=== PATIENT | male | born 1985 | race Hispanic/Latino ===

== ENCOUNTER 2024-07-17 01:25 | Emergency (ER) | payer BC ==
--- OUTSIDE RECORDS SUMMARY | 2024-07-17 01:29 | XMS REPORT | Continuity of Care Document ---
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 have a faint memory of the procedure. Or you may not remember it at all. You should be able to go home within 1 to 2 hours after your procedure. Plan to have a trusted adult stay with you for a few hours. This person should make sure your condition is not getting worse. They should also watch for problems, and keep you safe. You may have side effects, such as nausea, fatigue, or unsteadiness for up to 24 hours. You may also feel lightheaded. Tell your healthcare provider if they continue. Don?t drive or operate dangerous machines during the next 24 hours. Also, don't make any important business or personal decisions. And don't drink any alcohol during the next 24 hours. Take extra care when walking and moving, You may be at a higher risk of falling. Follow any instructions you were given for eating and drinking. Be sure to follow all after-care directions. When to call your healthcare provider Have someone call your healthcare provider right away if any of the following occur: ? Drowsiness that gets worse ? Weakness or dizziness that gets worse ? Repeated vomiting ? Your speech is slurred, and others cannot understand you ? Severe or ongoing pain from the procedure, not relieved by the pain medicine (if prescribed) ? Fever of 100.4? F (38?C) or higher, or as advised by your healthcare provider ? New rash Call 911 Have someone call 911 if any of the following occur: ? Trouble breathing ? Trouble swallowing ? Chest pain ? Loss of consciousness or you can't be awakened Last Reviewed Date: 2021 00:00:00 ? [id number] The Clerk. All rights reserved. This information is not intended as a substitute for professional medical care. Always follow your healthcare professional's instructions. [facility]2024-12-19 12:49:03 Images from the original note were not included. 34131 Preventing a Surgical Site Infection A risk of any surgery is an infection at the surgical site. The surgical site is a cut the surgeon makes in the skin to do the surgery. Surgical site infections can range in type. It may be a minor skin infection. Or it may be severe and include tissue under the skin or other organs. In some cases, a severe infection can cause . This sheet tells you: ? About surgical site infections ? What hospitals do to prevent them ? How they?re treated if they do occur ? What you can do to prevent an infection Hand washing reduces the risk of infection. What causes a surgical site infection? Germs are everywhere. They?re on your skin, in the air, and on things you touch. Many germs are good. Some are harmful. Surgical site infections occur when harmful germs enter your body through the incision in your skin. Some infections are caused by germs that are in the air or on objects. But most are caused by germs found on and in your own body. Who is at risk for a surgical site infection? Anyone can have a surgical site infection. Your risk is higher if you: ? Are an older adult ? Have a weak immune system ? Have other health conditions such as diabetes ? Take certain medicines, such as steroids ? Are a smoker ? Have certain types of surgery, such as abdominal surgery ? Have poor nutrition ? Are very overweight ? Have a surgery that lasts longer than 2 hours What are the symptoms of a surgical site infection? An infection often shows up as skin redness, pain, and swelling around the incision that gets worse. Later a cloudy or greenish-yellow fluid may come from the incision. The fluid may smell bad. The incision may pull apart or open up. You are likely to have a fever and may feel very ill. Symptoms can appear any time. They may happen from hours to weeks after surgery. Implants such as an artificial knee or hip can become infected at any time after the surgery. How is a surgical site infection treated? ? A surgical site infection is treated with antibiotics. The type of medicine you get will depend on what may be causing the infection. Most serious wound infections need wound care. In some cases, surgery may be needed on the infected wound. ? An infected skin wound may be reopened and cleaned. A deep wound may need to be packed with gauze. The gauze is changed often until the wound starts to heal from the inside out. Your healthcare provider will decide the best way to treat your infection. ? If an infection occurs where an implant is placed, the implant may be removed. ? If you have an infection deeper in your body, you may need surgery to treat it. What hospitals do to prevent surgical site infections Many hospitals take these steps to help prevent surgical site infections: ? Handwashing. Before the surgery, your surgeon and all surgery staff scrub their hands and arms with an antiseptic soap. ? Clean skin. The site where your incision is made is carefully cleaned with an antiseptic solution. ? Sterile clothing and drapes. The surgical team wears medical uniforms. These are known as scrub suits. They wear long-sleeved surgical gowns, masks, caps, shoe covers, and sterile gloves. Your body is fully covered with a large sterile sheet (sterile drape). There is an opening in the sheet where the incision is made. ? Clean air. Operating rooms have special air filters. They use positive pressure airflow to prevent unfiltered air from entering the room. ? Careful use of antibiotics. Antibiotics are given no more than 60 minutes before the incision is made. They are generally stopped within 24 hours after surgery. This depends on the type of surgery. This helps kill germs but prevents problems that can occur when antibiotics are taken longer. ? Controlled blood sugar levels. Your blood sugar level may rise. This can be because of the stress of the surgery. Your blood sugar level is watched closely to make sure it stays within a normal range. High blood sugar delays wound healing. This increases the risk of infection. ? Controlled body temperature. A [id number] temperature during or after surgery prevents oxygen from reaching the wound. This makes it harder for your body to fight infection. Hospitals may warm IV fluids, increase the temperature in the operating room, and provide warm-air blankets. ? Safe hair removal. Any hair that must be removed is clipped right before the incision, not shaved with a razor. This prevents tiny nicks and cuts where germs can enter. ? Wound care. After surgery, a closed wound is covered with a sterile dressing for 1 to 2 days. Open wounds are packed with sterile gauze and covered with a sterile dressing. What you can do to prevent a surgical site infection ? Ask questions. Learn what your hospital is doing to prevent infection. ? If instructed, shower or bathe with plain soap the night before and the day of your surgery. Follow all instructions you're given. You may be asked to use a special cleanser that you don?t rinse off. ? If you smoke, stop as long as possible before and after the surgery. Ask your healthcare provider about ways to quit. ? Take antibiotics only when your healthcare provider tells you to. Using antibiotics when they?re not needed can create germs that are harder to kill. Finish the entire prescription of your antibiotics. Take them even if you feel better. ? Ask healthcare workers to clean their hands with plain soap and water or with an alcohol-based hand automotive electrical fitter before and after caring for you. Don?t be afraid to remind them. ? After surgery, eat healthy foods. Care for your incision as directed by your healthcare team. When to call your healthcare provider Call your healthcare provider if you have any of these: ? Pain at the surgical site that gets worse ? A red streak, worse redness, or puffiness near the incision ? Yellowish, cloudy, or bad-smelling fluid from the incision ? Stitches that dissolve before the wound heals ? Fever of 100.4? F ( 38?C ) or higher, or as advised by your healthcare provider ? A tired feeling that doesn?t go away Last Reviewed Date: 2021 00:00:00 ? [id number] The Clerk. All rights reserved. This information is not intended as a substitute for professional medical care. Always follow your healthcare professional's instructions. [facility]2024-12-19 12:48:54 Images from the original note were not included. 37116 Discharge Instructions for Cerebral Angiography You had a procedure called cerebral angiography. This is an X-ray study of the blood vessels that supply your brain. During the procedure, the healthcare provider put a thin, flexible tube (catheter) into a blood vessel in your groin, arm, or neck through a small cut (incision). The provider injected contrast dye into your bloodstream to help take clear X-ray images. Here?s what to do at home afterward. Possible complications to watch for The most common complication of this test is a collection of blood (hematoma) where the catheter was inserted. This is usually in the groin. It may appear as a lump under the skin. The medical staff usually notices this before you leave the imaging facility. A hematoma is treated by putting pressure on the site for a few hours to prevent it from getting bigger. You will be told to put cold packs on your groin for 24 hours to ease the pain. It takes a couple of weeks for the hematoma to heal. If the lump increases in size or is still present after 4 weeks, have it examined by your healthcare provider. A less common complication is transient ischemic attacks (TIA) or a stroke. A TIA or stroke is caused by less blood flow to your brain. You might have weakness of an arm or leg, have trouble speaking and understanding words, or lose some vision or not remember things well. A TIA can last just a few hours. A stroke can last for days or weeks. Or be permanent. The older you are, the greater the risk for a TIA or a stroke after a cerebral angiography. You might notice these symptoms at the time of the test or after you have left the imaging facility, sometimes days later. What to do at home ? Rest at home in bed for 12 hours, or as long as directed. ? Go back to your normal diet and take your regular medicines. ? Do only light and easy activities for 2 to 3 days. ? Drink 6 to 8 glasses of water a day. This will keep you from losing fluid. It will also help flush the X-ray dye out of your body. ? Don't drive until the day after your procedure. ? Don?t do strenuous activity for 2 weeks. Don?t lift anything heavier than 10 pounds for 3 to 4 days. ? You can shower the day after your procedure. But don't swim or sit in a bath or hot tub until your incision site has healed. ? Take your temperature and check your incision site for signs of infection every day for 1 week. Check for redness, swelling, or warmth at the site. ? Ask your healthcare provider when you can go back to work. Call 911 A stroke is a medical emergency. Call 911 right away if you have any of the following symptoms of a stroke or TIA: ? Weakness, tingling, or loss of feeling on one side of your face or body ? Sudden double vision or trouble seeing in one or both eyes ? Sudden trouble talking or slurred speech ? Sudden, severe headache B.E. F.A.S.T. is an easy way to remember the signs of stroke. When you see these signs, you know that you need to call 911 fast. B.E. F.A.S.T. stands for: ? B is for balance. Sudden loss of balance or coordination. ? E is for eyes. Vision changes in one or both eyes. ? F is for face drooping. One side of the face is drooping or numb. When the person smiles, the smile is uneven. ? A is for arm weakness. One arm is weak or numb. When the person lifts both arms at the same time, one arm may drift downward. ? S is for speech difficulty. You may notice slurred speech or trouble speaking. The person can't repeat a simple sentence correctly when asked. ? T is for time to call 911. If someone shows any of these symptoms, even if they go away, call 911 right away. Make note of the time the symptoms first appeared. When to call your healthcare provider Call your healthcare provider right away if any of the following occur: ? Trouble breathing ? Dizziness ? Constant or increasing pain or numbness in your leg, arm, or neck ? Fever of 100.4?F (38?C) or higher, or as directed by your healthcare provider ? Signs of infection at the incision site, such as redness, swelling, or warmth ? Shortness of breath ? Leg feels cold or looks blue ? Bleeding, bruising, or a large swelling where the catheter was inserted ? Not enough urine or no urine Last Reviewed Date: 2022 00:00:00 ? [id number] The Clerk. All rights reserved. This information is not intended as a substitute for professional medical care. Always follow your healthcare professional's instructions. [facility]2024-12-19 12:48:40 Images from the original note were not included. 56404 Arteriovenous Malformation (AVM) You have an arteriovenous malformation (AVM). An AVM is an abnormal tangle of blood vessels that causes irregular connections between arteries and veins in the brain. Some AVMs never burst (rupture). But some things can lead to a rupture. Some of these factors are known, such as a rise in blood pressure. And some factors are not known. If you have an AVM, you were likely born with it. Many people don't know they have AVM until a problem develops. Signs of an AVM include: ? Bad headaches ? Sudden or gradual paralysis or loss of sensation ? Blurred or double vision ? Jerking movements that you can't control (seizures) Understanding an AVM The brain controls the body. You can move and feel because of the brain. And it is the brain that makes you able to think, show emotions, remember, and make judgments. An AVM can damage the brain and put the rest of the body in danger. Inside the skull Under the scalp and the skull, a tough membrane (called the dura) surrounds the brain. Beneath the dura, cerebrospinal fluid (CSF) cushions the brain. Blood vessels carry nutrients and oxygen-rich blood throughout the brain. Blood vessels carry blood throughout the brain. A problem with blood flow An AVM is a tangle of blood vessels. It can cause pressure to build up in the blood vessel and prevent normal blood flow. If the pressure becomes too great or the wall of the AVM vessel weakens, a blood vessel can burst and blood can leak or spurt into the brain. This can damage parts of the brain that control vital body functions, such as sight, sensation, language, critical thinking, and movements. In some cases, problems caused by an AVM can even lead to . The high blood flow in an AVM can also shunt the oxygen from the arteries directly to the veins, bypassing the brain capillaries. This shunting can lead to strokes. AVM can be treated based on the type, symptoms, and cause. Pressure builds when blood tries to flow through tangled vessels. Last Reviewed Date: 2023 00:00:00 ? [id number] The Clerk. All rights reserved. This information is not intended as a substitute for professional medical care. Always follow your healthcare professional's instructions. TAL CALIBRATOR [facility] [id number] 08:00:00 Addended by: RADHA LI on: 05/07/2024 10:44 AM Modules accepted: Level of Service [facility]AL [id number] 17:43:38Scheduled Orders Health Maintenance Due Date Last Done Comments Annual Physical 1989 Varicella Vaccines (1 of 2 - 13+ 2-dose series) 1999 DTaP/Tdap/Td Vaccines (1 - Tdap) 2005 Hepatitis B Vaccines (1 of 3 - 19+ 3-dose series) 2005 Influenza Vaccine (#1) 2024 Lipid Panel 07/01/2028 07/01/2023 HIB Vaccines Aged Out No longer eligi ble based on patient's age to complete this topic HPV Vaccines Aged Out No longer eligi ble based on patient's age to complete this topic Hepatitis A Vaccines Aged Out No long er eligible based on patient's age to complete this topic IPV Vaccines Aged Out No longer eligi ble based on patient's age to complete this topic Meningococcal Vaccine Aged Out No jaden sherrill eligible based on patient's age to complete this topic Pneumococcal Vaccine: Pediat rics (0 to 5 Years) and At-Risk Patients (6 to 64 Years) Aged Out No longer eligible b ased on patient's age to complete this topic Rotavirus Vaccines Aged Out No longer eligible based on patient's age to complete this topic [facility] NorthwestKmvrarj2112-26-18 17:43:38 Diagnosis 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 [facility] [id number] 17:43:38 [facility] [id number] 17:43:38* Imaging (Routine) - Pending Review Specialty Diagnoses / Procedures Referred By Sonny t Referred To Contact Interventional Radiology Diagnoses Arteriovenous malformation of cerebral vessels Procedures IR angiogram cerebral bilateral Antelmo Quiñones MD [address] [facility] [address] [place] [address] Phone: tel: fax: Referral ID Status Reason Start Date Expiration Date V isits Requested Visits Authorized [id number] Pending Review 04/12/2024 10/09/2024 1 1 [facility] [id number] 16:02:43 Chief Complaint: Follow up of rehabilitation needs, history of nontraumatic ICH. History of Present Illness: Present during this visit: Patient and PRIMARY CARE PHYSICIAN: Dr. Bacon NSG: Dr. 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 CTH on admission showed large right temporal and parietal hemorrhage with IVH, midline shift to the left, subfalcine herniation and uncal herniation. CTA showed a sylvian fissure AVM. s/p emergent AVM resection. The patient was transferred to [facility] for acute inpatient rehabilitation under the service of Dr. Poe from 06/30/2023 to 07/13/2023. INTERVAL HISTORY: The patient was first seen in clinic on09/07/2023. The patient and family are here for a follow up visit and reports of the followin. Medical. No new illnesses or hospitalizations since last seen in clinic. for CT angiogram in 6 to 8 months per with NSG. 2. Cognitive impairment. -- Denies issues, thinks he is baseline for day to day functioning. -- Discharge note by neuropsychologist while the patient was admitted to the [facility] inpatient unit showed severe impairment in attention, visual spatial, and executive functioning. -- He d/austen Ritalin with no negative effects per their report. 3. Functional status. -- Reports of independence with basic ADLs. -- Looking at process to return to drive and work. Worked as an operations liaison for a chemical plant in [facility] [place][note 3]. 4. Gait status. Ambulates community distances without assistive device. 5. Therapies. None but does regular home exercise program. 6. Vision. Left homonymous hemianopsia by michael Ferreira. He has seen as outpatient but pending to see [facility] group for second opinion. 7. Bowel and Bladder. Denies issues, continent. 8. Swallow. Regular consistency, thin liquids. Denies issues. 9. Sleep. Denies insomnia. 10. Mood. Improved, denies irritability, anger, mood is stable. Off Depakote. Review of Systems: CONSTITUTIONAL: Denies fever EARS, NOSE, MOUTH, THROAT: No cough, cold, sore throat, difficulty swallowing CARDIOVASCULAR: Denies orthopnea, shortness of breath RESPIRATORY: Denies difficulty of breathing GI: Denies constipation, diarrhea : Denies change in bladder function INTEGUMENTARY: Denies rash, open sores. NEURO: Denies new weakness, sensory changes. PSYCH: Denies hallucination Physical Exam: Vitals & Measurements HT: 165.1 cm WT: 56.7 kg WT Collection: Measured BP: 114/70 RR: 18 BRMIN T(Te): 97.3 DegF BP Collection Position: Sitting BMI: 20.8 m2 BSA: 1.6126 m2 SpO2: 100 % CONSTITUTIONAL: Not in acute distress, well groomed, well developed, well nourished, up in examining table. EYES: anicteric sclerae. RESPIRATORY: No intercostal retractions. Unlabored breathing. MUSCULOSKELETAL: Digits and nails are well perfused. PSYCHIATRIC: Oriented to person, place and date. Affect is appropriate. Awake and alert. No deficits of expressive and receptive language during this interaction, no tremor noted, no restlessness noted. SKIN: No rashes, lesions,ulcers noted on gross exam of exposed areas. Assessment/Plan: 1. 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 Left homonymous hemianopsia (H53.462) Right temporal and parietal hemorrhage with IVH from ruptured AVM (06/23/2023) s/p AVM resection. -- Good recovery: reports of independence in basic ADLs, independent in community ambulation, endurance improved. Still has not been able to return to drive or to work. -- Continue care with PCP for general medical needs and refill of medications. -- Keep appointments with other specialists as directed by those clinics -- They have d/austen from outpatient therapies, he performs regular home exercise program, continue. 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 If cleared, may consider referral to [facility] for behind the wheel testing and to guide his return to drive goals. We also discussed OT referral for pre driving assessment after eye doctor visit. They will call the clinic should they wish to pursue any of the recommendations. Cognitive impairment. -- Discharge note by neuropsychologist while he was at [facility] inpatient showed severe impairment in attention, visual spatial, and executive functioning. He currently denies any cognitive diffficulties and states he is back to baseline. -- He discontinued his Ritalin since last visit with no reported decline or effect on cognition, alertness. -- Referral to Neuropsychology for comprehensive cognitive evaluation, guide to return to school/driving goals were generated in 09/2023 but they declined to pursue at that time. We again discussed the recommendation, indications, and benefits of pursuing this but they decline. -- We also discussed [facility] program to assist with cognitive rehab, neuropsychology testing and return to work/drive goals but they decline at this time. Behavior, mood. -- Improved, denies irritability, anger, mood is stable. -- They have weaned off Depakote as discussed with no change in mood/behavior. Left homonymous hemianopsia. -- Seen by Dr. Foster, neuro-optometry while inpatient at [facility]. Peripheral vision is improving. -- He has seen as outpatient but pending to see [facility] group for second opinion. Recommendations and pathways for return to drive and work discussed with them. They prefer to continue to follow up with the PCP and or NSG to guide this process. Follow up in this clinic as needed. Plans were discussed with the patient and the family, who expressed understanding and agreement. Problem List/Past Medical History: Ongoing Left homonymous hemianopsia Nontraumatic intracerebral hemorrhage in hemisphere, cortical Medications: methylphenidate 5 mg oral tablet, 5 mg= 1 tab, PO, Daily Allergies: No Known Allergies Social History: Alcohol Current, Type Beer, Wine, Liquor. Frequency: 1-2 times per month. Last use: occassional; last use May 2023. Electronic Cigarette/Vaping Electronic Cigarette Use: Never. Employment/School Status: Employed. Sexual Sexually active: Yes. Substance Abuse Use: None. Tobacco Use: Never smoker. Tobacco smoke exposure: None. Did the Patient Smoke Cigarettes Anytime During the Last 365 Days? No. Cessation Counseling Provided? No. Health Maintenance: Pending (in the next year) Due HIV Screening - [facility] due 11/08/23 Unknown Frequency Hepatitis C Screening - [facility] due 11/08/23 Unknown Frequency Influenza Vaccination - [facility] due 11/08/23 Unknown Frequency Statin Therapy All Groups - IVD/CAD due 11/08/23 Unknown Frequency Tdap Vaccination - [facility] due 11/08/23 Unknown Frequency [facility]
[2024-07-17 01:54] LABS: Absolute Eosinophils 0.2 K/uL (0-0.5); Absolute Lymphocytes (CBC) 3.6 K/uL (0.7-4.9); Absolute Monocytes 0.6 K/uL (0.1-1.3); Absolute Neutrophil 3.4 K/uL (1.8-8.0); Basophils % 0.5 % (0-1.3); Eosinophils % 1.9 % (0-4.4); Hematocrit 37.9 % (39.6-49.0); Hemoglobin 12.5 g/dL (13.6-17.9); Lymphocytes % 46.7 % (15.3-44.8); MCH 27.2 pg (27.0-35.0); MCV 82.3 fL (80-100); MPV 9.3 fL (7.6-11.3); Monocytes % 7.7 % (3.3-12.3); Neutrophils % 43.2 % (41.7-73.7); Platelets 293 thou/uL (152-406); Red Cell Distribution Width 15.3 % (12.1-15.2)
[2024-07-17 02:00] LABS: Anion Gap 11.4 mEq/L (5.0-15.0); Potassium 3.4 mEq/L (3.5-5.1)
[2024-07-17] MEDS ORDERED: NA CHLORIDE 0.9% 100 ML ONE (02:00)
[2024-07-17] MEDS ORDERED: LEVETIRACETAM 500 MG/5 ML VIAL IV ONE (02:00)
[2024-07-17] MEDS ORDERED: POTASSIUM CL SA 10 MEQ TAB PO ONE (02:42)
--- NOTE | 2024-07-17 04:10 | ER ---
Nurse's Notes [facility] Name: Gino Joyce Age: 39 yrs Sex: Male : 1985 Arrival Date: 07/17/2024 Time: 01:25 Bed 3 Private MD: Diagnosis: Other seizures Presentation: 07/17 01:44 Chief complaint: EMS states: woke up to pt having a seizure. When we arrived he vc1 was no longer having a seizure but was post ictal. Coronavirus screen: Client denies travel out of the [place] in the last 14 days. At this time, the client does not indicate any symptoms associated with coronavirus-19. Ebola Screen: Patient negative for fever greater than or equal to 101.5 degrees Fahrenheit, and additional compatible Ebola Virus Disease symptoms Patient denies exposure to infectious person. Patient denies travel to an Ebola-affected area in the 21 days before illness onset. No symptoms or risks identified at this time. Risk Assessment: Do you want to hurt yourself or someone else? Patient reports no desire to harm self or others. Onset of symptoms was July 17, 2024. 01:44 Method Of Arrival: EMS: [facility] vc1 01:44 Acuity: ANTHONY 3 vc1 - Immunization history:: Adult Immunizations unknown. - Infectious Disease History:: Denies. Screenin:45 [facility] ED Fall Risk Assessment (Adult) History of falling in the last 3 months, vc1 including since admission No falls in past 3 months (0 pts) Confusion or Disorientation No (0 pts) Intoxicated or Sedated Yes (3 pts) Impaired Gait No (0 pts) Mobility Assist Device Used No (0 pt) Altered Elimination No (0 pt) Score/Fall Risk Level 0 - 2 = Low Risk Oriented to surroundings, Maintained a safe environment, Educated pt \T\ family on fall prevention, incl call for assistance when getting out of bed. Abuse screen: Denies threats or abuse. Nutritional screening: No deficits noted. Tuberculosis screening: No symptoms or risk factors identified. Assessment: :45 Reassessment: Patient and/or family updated on plan of care and expected duration. Pain br2 level reassessed. Patient is alert, oriented x 3, equal unlabored respirations, skin warm/dry/pink. General: Appears in no apparent distress. Behavior is calm, cooperative. Pain: Denies pain. Neuro: [place] Agitation-Sedation Scale (RASS): 0 - Alert and Calm Level of Consciousness is awake, alert, obeys commands, confused, Oriented to person, place, time. Cardiovascular: Capillary refill < 3 seconds. Vital Signs: 02:00 BP 104 / 82; Pulse 96; Resp 22 S; Pulse Ox 93% on R/A; br2 04:00 BP 100 / 61; Pulse 73; Resp 18; Pulse Ox 96% on R/A; br2 ED Course: 01:27 Patient arrived in ED. lg3 01:27 Beka Walton MD is Attending Physician. ec2 01:43 No provider procedures requiring assistance completed. Maintain EMS IV. Dressing vc1 intact. Good blood return noted. Site clean \T\ dry. Gauge \T\ site: 20G R AC. Flushed with 10 mL NS Converted IV to saline lock on. 01:45 Triage completed. vc1 01:46 Arm band placed on right wrist. vc1 01:46 Patient has correct armband on for positive identification. Bed in low position. Call vc1 light in reach. Provided Education on: call light. environmental monitoring technician on. Pulse ox on. NIBP on. 01:55 Basic Metabolic Panel Sent. vk 01:55 CBC with Diff Sent. vk 01:58 Keri Flores RN is Primary Nurse. br2 02:24 CT Head Brain wo Cont In Process Unspecified. EDMS 04:09 Trevor Ghosh MD is Referral Physician. ec2 04:10 IV discontinued, intact, bleeding controlled, No redness/swelling at site. Pressure br2 dressing applied. Administered Medications: 02:12 Drug: Keppra IV 1000 mg IV at bolus once Route: IV; Rate: bolus; Site: right br2 antecubital; 03:00 Follow up: Response: No adverse reaction; IV Status: Completed infusion; IV Intake: br2 100ml 02:49 Drug: Potassium Chloride PO 40 mEq PO once Route: PO; br2 03:00 Follow up: Response: No adverse reaction br2 Medication: 01:46 VIS not applicable for this client. vc1 Intake: 03:00 IV: 100ml; Total: 100ml. br2 Outcome: 04:09 Discharge ordered by . ec2 04:10 Discharged to home ambulatory, br2 04:10 Condition: improved 04:10 Discharge instructions given to patient, Instructed on discharge instructions, follow up and referral plans. Demonstrated understanding of instructions, 04:12 Patient left the ED. br2 Signatures: Dispatcher [employer] Rosa Calderon RN RN lg3 Janessa Abraham RN RN vc1 Beka Walton MD MD ec2 Marla Roper Belinda, RN RN br2 Corrections: (The following items were deleted from the chart) 04:22 04:22 IV discontinued, intact, bleeding controlled, No redness/swelling at site. br2 Pressure dressing applied, br2 04:26 04:25 Patient left the ED. br2 br2
--- NOTE | 2024-07-17 04:10 | EDPHYS ---
Physician Documentation [facility] Name: Gino Joyce Age: 39 yrs Sex: Male : 1985 Arrival Date: 07/17/2024 Time: 01:25 Bed 3 Private MD: ED Physician Beka Walton HPI: 07/17 01:28 This 39 yrs old Male presents to ER via Unassigned with complaints of seizure. ec2 01:28 Patient arrives today with history of seizure. Patient had a seizure tonight, history ec2 of seizures, previously on Keppra and discontinued 2 months ago. Patient with a history of AVM status post rupture and repair. EMS reports he picked him up and noted him to be postictal.. - Immunization history:: Adult Immunizations unknown. - Infectious Disease History:: Denies. ROS: 01:28 Constitutional: as per hpi ec2 Exam: 01:28 Constitutional: GEN: NAD Head: atraumatic Eyes: EOMI Ears: External ears are ec2 normal. CV: regular rate LUNGS: no respiratory distress ABD: non-distended SKIN: no evidence of rashes MSK: no evidence of trauma. Neuro: Cranial nerves II through XII intact, strength intact upper extremities. Vital Signs: 02:00 BP 104 / 82; Pulse 96; Resp 22 S; Pulse Ox 93% on R/A; br2 04:00 BP 100 / 61; Pulse 73; Resp 18; Pulse Ox 96% on R/A; br2 MDM: 01:27 Medical Screening Exam initiated ec2 01:28 Data reviewed: vital signs, nurses notes. ED course: Patient arrives today after ec2 seizure. Examination is revealing for neuro intact individual. Will obtain lab work, CT imaging, load with Keppra. Suspect seizure activity. Evaluating for electrolyte disturbances, anemia, arrhythmia.. 02:05 ED course: EKG independently reviewed and interpreted by me, shows normal sinus rhythm, ec2 rate of 81, no acute ST segment elevations, intervals are nonactionable.. 02:41 ED course: Patient is at baseline, is intact neurologically. Family has Keppra ec2 medication at home. I instructed them they are likely need to be restarting this medication.. 07/17 01:28 Order name: Basic Metabolic Panel; Complete Time: 02:17 ec2 07/17 01:28 Order name: CBC with Diff; Complete Time: 02:17 ec2 07/17 01:28 Order name: CT Head Brain wo Cont ec2 07/17 01:28 Order name: EKG; Complete Time: 01:28 ec2 07/17 01:28 Order name: Cardiac monitoring; Complete Time: 01:55 ec2 07/17 01:28 Order name: EKG - Nurse/Tech; Complete Time: 02:00 ec2 07/17 01:28 Order name: IV Saline Lock; Complete Time: 01:56 ec2 07/17 01:28 Order name: Labs collected and sent; Complete Time: 01:56 ec2 07/17 01:28 Order name: O2 Per Protocol; Complete Time: :55 ec2 07/17 01:28 Order name: O2 Sat Monitoring; Complete Time: :55 ec2 Administered Medications: 02:12 Drug: Keppra IV 1000 mg IV at bolus once Route: IV; Rate: bolus; Site: right br2 antecubital; 03:00 Follow up: Response: No adverse reaction; IV Status: Completed infusion; IV Intake: br2 100ml 02:49 Drug: Potassium Chloride PO 40 mEq PO once Route: PO; br2 03:00 Follow up: Response: No adverse reaction br2 Disposition Summary: 07/17/24 04:09 Discharge Ordered Notes: Location: Home ec2 Condition: Stable ec2 Diagnosis - Other seizures ec2 Followup: ec2 - With: Trevor Ghosh MD - When: - Reason: Recheck today's complaints Discharge Instructions: - Discharge Summary Sheet ec2 - Seizure, Adult ec2 Forms: - Medication Reconciliation Form ec2 - Antibiotic Education ec2 - Prescription Opioid Use ec2 - Patient Portal Instructions ec2 - Leadership Thank You Letter ec2 Signatures: Dispatcher [employer] Janessa Saeed RN RN vc1 Beka Walton MD MD ec2 Keri Flores RN RN br2
--- NOTE | 2024-07-17 05:36 | RAD REPORT ---
CLINICAL HISTORY: Seizure, hx of AVM. COMPARISON: None. TECHNIQUE: CT HEAD WITHOUT IV CONTRAST on 07/17/2024 1:28 AM EQUIPMENT STERILIZER This exam was performed according to our departmental dose-optimization program, which includes autom ated exposure control, adjustment of the mA and/or kV according to patient size and/or use of iterative reconstruction technique. FINDINGS: There is no acute hemorrhage, mass effect or midline shift. There is encephalomalacia within the righ t temporal lobe extending into the right frontoparietal region. There is no hydrocephalus. There is no significant volume loss for age. Right frontoparietal and temporal craniotomy was performed. Orbits and globes are unremarkable. The p aranasal sinuses are clear. Mastoid air cells are clear. IMPRESSION: No acute intracranial findings. Electronically signed by: Yoandy Monteiro MD 07/17/2024 04:03 AM EQUIPMENT STERILIZER RP Due to temporary technical issues with the [employer] reporting system, reports are being sheryl d by the in-house radiologist without review as a courtesy to ensure prompt reporting the interpreting radiologist is fully responsible for the content of the report. Transcribed Date/Time: 07/17/2024 5:36 AM
[2024-07-17 11:31] VITALS: BP 104/82; O2SAT 93
--- NOTE | 2024-07-17 11:44 | EKG ---
Test Date: 2024-07-17 Test Time: 02:00:09 Porter Sample Case: DAREK MEASUREMENT RESULTS: Intervals: Rate: 81 WV: 146 QRSD: 92 QT: 364 QTc: 422 [place]: P: 53 WV: 146 QRS: -33 T: 39 INTERPRETIVE STATEMENTS: Normal sinus rhythm Left axis deviation Abnormal ECG No previous ECG available for comparison Electronically Signed On 07-17-24 11:43:33 CAREER SERVICES OFFICER by Brad Wood
== END 2024-07-17 04:25 | disposition home or self-care (01) ==
LOC: ER 01:25
DX: G40.89 Other seizures (principal)
CPT/HCPCS: 93005; 85025; 80048; 36415; 70450; J1953